=== PATIENT | male | born 1990 | race Hispanic/Latino ===

== ENCOUNTER 2024-03-19 14:48 | Emergency (ER) | payer BC ==
[2024-03-19] MEDS ORDERED: METHYLPREDNISOLONE 125 MG INJ ONE (15:36)
[2024-03-19] MEDS ORDERED: NA CHLORIDE 0.9% 1,000 ML ONE (15:36)
[2024-03-19] MEDS ORDERED: ALBUTEROL 2.5 MG/3 ML NEB SOL ONE (15:36)
[2024-03-19] MEDS ORDERED: IPRATROPIUM BROM 0.5MG/2.5ML ONE (15:36)
[2024-03-19 16:15] LABS: Absolute Basophils 0.1 K/uL (0-0.5); Absolute Eosinophils 0.4 K/uL (0-0.5); Absolute Lymphocytes (CBC) 2.1 K/uL (0.7-4.9); Absolute Monocytes 1.4 K/uL (0.1-1.3); Absolute Neutrophil 13.1 K/uL (1.8-8.0); Basophils % 0.5 % (0-1.3); Eosinophils % 2.4 % (0-4.4); Hemoglobin 18.8 g/dL (13.6-17.9); Lymphocytes % 12.4 % (15.3-44.8); MCHC 34.2 g/dL (32.0-36.0); MCV 84.6 fL (80-100); MPV 9.1 fL (7.6-11.3); Neutrophils % 76.7 % (41.7-73.7); Nucleated RBC Absolute Count 0.1 (0-0); Nucleated Red Blood Cells % 0.4 % (0-0); Platelets 466 thou/uL (152-406); RBC Red Blood Cell Count 6.51 M/uL (4.33-5.43); Red Cell Distribution Width 13.3 % (12.1-15.2)
[2024-03-19 16:28] LABS: Albumin 2.5 g/dL (3.4-5.0); Albumin/Globulin Ratio 0.9 (1.1-1.8); Anion Gap 11.6 mEq/L (5.0-15.0); Bilirubin Direct 0.2 mg/dL (0-0.2); Bilirubin Indirect, Calculated 0.2 mg/dL (0.2-0.8); Bilirubin Total 0.4 mg/dL (0.2-1.0); Globulin 2.7 g/dL (2.3-3.5); Magnesium 2.1 mg/dL (1.6-2.4); Potassium 3.6 mEq/L (3.5-5.1); Protein, Total 5.2 g/dL (6.4-8.2); Troponin High Sensitivity 3.6 pg/mL (<58.9)
--- NOTE | 2024-03-19 16:40 | RAD REPORT ---
EXAM DESCRIPTION: [place] Single View03/19/2024 4:18 pm CLINICAL HISTORY: COUGH COMPARISON: No comparisons TECHNIQUE: Portable AP view of the chest. FINDINGS: The lungs are clear. No pneumothorax or effusion. The cardiomediastinal contours are unre markable. IMPRESSION: No acute cardiopulmonary process.
--- NOTE | 2024-03-19 17:06 | ER ---
Nurse's Notes [facility] Name: Carlos Martinez Age: 34 yrs Sex: Male : 1990 Arrival Date: 03/19/2024 Time: 14:48 Bed 10 Private MD: Diagnosis: Acute bronchitis, unspecified Presentation: 03/19 15:13 Chief complaint: Patient states: chest congestion X 2 weeks, + cough, was seen at urgent care on Saturday and put on abx and albuterol, has been having vomiting and diarrhea for past few days but that has improved , the chest congestion has not improved. Coronavirus screen: Client presents with at least one sign or symptom that may indicate coronavirus-19. Ebola Screen: Patient negative for fever greater than or equal to 101.5 degrees Fahrenheit, and additional compatible Ebola Virus Disease symptoms Patient denies exposure to infectious person. Patient denies travel to an Ebola-affected area in the 21 days before illness onset. No symptoms or risks identified at this time. Initial Sepsis Screen: Does the patient meet any 2 criteria? No. Patient's initial sepsis screen is negative. Does the patient have a suspected source of infection? No. Patient's initial sepsis screen is negative. Risk Assessment: Do you want to hurt yourself or someone else? Patient reports no desire to harm self or others. Onset of symptoms was March 04, 2024. 15:13 Method Of Arrival: Ambulatory 15:13 Acuity: INOCENCIO 3 Triage Assessment: 15:50 Respiratory: Reports shortness of breath cough that is pain with cough Onset: The nj1 symptoms/episode began/occurred 2 weeks. Historical: - Allergies: 15:15 No Known Allergies; iw - Home Meds: 15:15 None [Active]; iw - PMHx: 15:15 None; iw - PSHx: 15:15 None; iw - Immunization history:: Adult Immunizations not up to date. - Infectious Disease History:: Denies. - Social history:: Smoking status: . Screenin:06 [facility] ED Fall Risk Assessment (Adult) History of falling in the last 3 months, nj1 including since admission No falls in past 3 months (0 pts) Confusion or Disorientation No (0 pts) Intoxicated or Sedated No (0 pts) Impaired Gait No (0 pts) Mobility Assist Device Used No (0 pt) Altered Elimination No (0 pt) Score/Fall Risk Level 0 - 2 = Low Risk Oriented to surroundings, Maintained a safe environment, Hourly rounding (assess needs \T\ fall precautionary measures) done. Abuse screen: Denies threats or abuse. Denies injuries from another. Nutritional screening: No deficits noted. Tuberculosis screening: No symptoms or risk factors identified. Assessment: 15:50 General: Appears in no apparent distress. comfortable, Behavior is calm, cooperative, nj1 appropriate for age. 15:50 Pain: Complains of pain in chest Pain currently is 3 out of 10 on a pain scale. Neuro: nj1 Level of Consciousness is awake, alert, obeys commands, Oriented to person, place, time, situation. Cardiovascular: Reports chest pain, shortness of breath, Patient's skin is warm and dry. Respiratory: Airway is patent Respiratory effort is even, unlabored. 16:39 Reassessment: Patient appears in no apparent distress at this time. Patient and/or nj1 family updated on plan of care and expected duration. Pain level reassessed. Patient is alert, oriented x 3, equal unlabored respirations, skin warm/dry/pink. Vital Signs: 15:13 BP 148 / 92; Pulse 99; Resp 19; Temp 97.4; Pulse Ox 99% on R/A; Weight 138.35 kg; iw Height 6 ft. 3 in. ; Pain 3/10; 15:50 BP 140 / 85; Pulse 92; Resp 18; Pulse Ox 98% on R/A; Pain 3/10; nj1 15:13 Body Mass Index 38.12 (138.35 kg, 190.5 cm) iw 15:13 Pain Scale: Adult iw 15:50 Pain Scale: Adult nj1 ED Course: 14:51 Patient arrived in ED. rg4 14:57 Alvaro Espitia MD is Attending Physician. rt 15:15 Triage completed. iw 15:15 Arm band placed on. iw 15:23 Marli Tian, ELIECER is Primary Nurse. nj1 15:58 Inserted saline lock: 20 gauge in left antecubital area, using aseptic technique. Blood nj1 collected. Ultrasound guided. Catheter tip well visualized within vasculature during placement. 16:07 Patient has correct armband on for positive identification. Bed in low position. Call nj1 light in reach. Provided Education on: call light, fall precautions. 16:11 EKG done, by ED staff, reviewed by Alvaro Espitia MD. bc6 16:19 XRAY Chest (1 view) In Process Unspecified. EDMS Administered Medications: 15:59 Drug: MethylPrednisoLONE IVP 125 mg IVP once Route: IVP; Site: left antecubital; nj1 15:59 Drug: NS 0.9% IV 1000 ml IV at 1 bolus Per protocol; 1000 mL bolus Route: IV; Rate: 1 nj1 bolus; Site: left antecubital; 16:01 Drug: DuoNeb Nebulize (3:1) (2.5 mg - 0.5 mg) 3 ml Nebulizer once Route: Nebulizer; nj1 Outcome: 17:05 Discharge ordered by . rt 17:27 Patient left the ED. nj1 Signatures: Dispatcher [employer] EDMS Shania Lauren, RN RN Tangela Gavin rg4 Alvaro Espitia MD MD rt Jenny Cabrera bc6 Marli Tian RN RN nj1
--- NOTE | 2024-03-19 17:06 | EDPHYS ---
Physician Documentation [facility] Name: Carlos Martinez Age: 34 yrs Sex: Male : 1990 Arrival Date: 03/19/2024 Time: 14:48 Bed 10 Private MD: ED Physician Alvaro Espitia Historical: - Allergies: 03/19 15:15 No Known Allergies; iw - Home Meds: 15:15 None [Active]; iw - PMHx: 15:15 None; iw - PSHx: 15:15 None; iw - Immunization history:: Adult Immunizations not up to date. - Infectious Disease History:: Denies. - Social history:: Smoking status: . Vital Signs: 15:13 BP 148 / 92; Pulse 99; Resp 19; Temp 97.4; Pulse Ox 99% on R/A; Weight 138.35 kg; iw Height 6 ft. 3 in. ; Pain 3/10; 15:50 BP 140 / 85; Pulse 92; Resp 18; Pulse Ox 98% on R/A; Pain 3/10; nj1 15:13 Body Mass Index 38.12 (138.35 kg, 190.5 cm) iw 15:13 Pain Scale: Adult iw 15:50 Pain Scale: Adult nj1 MDM: 15:20 Patient medically screened. rt 03/19 15:29 Order name: Basic Metabolic Panel; Complete Time: 16:44 rt 03/19 15:29 Order name: CBC with Diff; Complete Time: 16:44 rt 03/19 15:29 Order name: LFT's; Complete Time: 16:44 rt 03/19 15:29 Order name: Magnesium; Complete Time: 16:44 rt 03/19 15:29 Order name: NT PRO-BNP; Complete Time: 16:44 rt 03/19 15:29 Order name: Troponin HS; Complete Time: 16:44 rt 03/19 15:29 Order name: XRAY Chest (1 view); Complete Time: 16:44 rt 03/19 15:29 Order name: EKG; Complete Time: 15:30 rt 03/19 15:29 Order name: Cardiac monitoring; Complete Time: 16:13 rt 03/19 15:29 Order name: EKG - Nurse/Tech; Complete Time: 16:11 rt 03/19 15:29 Order name: IV Saline Lock; Complete Time: 16:04 rt 03/19 15:29 Order name: Labs collected and sent; Complete Time: 16:04 rt 03/19 15:29 Order name: O2 Per Protocol; Complete Time: 16:04 rt 03/19 15:29 Order name: O2 Sat Monitoring; Complete Time: 16:04 rt Administered Medications: 15:59 Drug: MethylPrednisoLONE IVP 125 mg IVP once Route: IVP; Site: left antecubital; nj1 15:59 Drug: NS 0.9% IV 1000 ml IV at 1 bolus Per protocol; 1000 mL bolus Route: IV; Rate: 1 nj1 bolus; Site: left antecubital; 16:01 Drug: DuoNeb Nebulize (3:1) (2.5 mg - 0.5 mg) 3 ml Nebulizer once Route: Nebulizer; nj1 Disposition Summary: 03/19/24 17:05 Discharge Ordered Notes: Location: Home rt Problem: an ongoing problem rt Symptoms: have improved rt Condition: Stable rt Diagnosis - Acute bronchitis, unspecified rt Followup: rt - With: Private Physician - When: 5 - 6 days - Reason: Discharge Instructions: - Discharge Summary Sheet rt Forms: - Medication Reconciliation Form rt - Antibiotic Education rt - Prescription Opioid Use rt - Patient Portal Instructions rt - Leadership Thank You Letter rt Prescriptions: - albuterol sulfate 90 mcg/actuation Inhalation HFA Aerosol Inhaler - inhale 3 puff INHALATION route every 3 to 4 hours; 1 Each; Refills: 0, Product rt Selection Permitted - Prednisone 20 mg Oral Tablet - take 2 tablets ORAL route once daily for 5 days; 10 tablet; Refills: 0, Product rt Selection Permitted Signatures: Dispatcher [employer] EDShania Ku RN RN iw Alvaro Espitia MD MD rt Marli Tian RN RN nj1 Corrections: (The following items were deleted from the chart) 15:30 15:30 BASIC METABOLIC PANEL+C.LAB.BRZ ordered. EDMS EDMS 15:30 15:30 CBC+H.LAB.BRZ ordered. EDMS EDMS 15:30 15:30 HEPATIC FUNCTION+C.LAB.BRZ ordered. EDMS EDMS 15:30 15:30 MAGNESIUM+C.LAB.BRZ ordered. EDMS EDMS 15:30 15:30 PROBNP+C.LAB.BRZ ordered. EDMS EDMS 15:30 15:30 Troponin High Sensitivity+C.LAB.BRZ ordered. EDMS EDMS
[2024-03-19 18:34] VITALS: TEMP 97.4
[2024-03-19 19:00] VITALS: BP 140/85; O2SAT 98
--- NOTE | 2024-03-23 13:09 | EKG ---
Test Date: 2024-03-19 Test Time: 16:08:03 Photographer Aerial: LACHELLE MEASUREMENT RESULTS: Intervals: Rate: 98 OK: 140 QRSD: 86 QT: 336 QTc: 428 Hoffman: P: 49 OK: 140 QRS: 18 T: 72 INTERPRETIVE STATEMENTS: Normal sinus rhythm Normal ECG No previous ECG available for comparison Electronically Signed On 03-23-24 12:59:03 CDT by Torsten Leonard
== END 2024-03-19 17:27 | disposition home or self-care (01) ==
LOC: ER 14:48
DX: J20.9 Acute bronchitis, unspecified (principal)
CPT/HCPCS: 93005; 85025; 80048; 36415; 83735; 80076; 84484; 83880; 71045; J7613; J7644; J2919; J7030

== ENCOUNTER 2024-03-28 18:16 | Emergency (ER) | payer BC ==
--- NOTE | 2024-03-28 19:10 | RAD REPORT ---
EXAM DESCRIPTION: RAD - Chest Single View - 03/28/2024 6:54 pm CLINICAL HISTORY: Cough;SOB COMPARISON: Chest Single View dated 03/19/2024 FINDINGS: Lines: None. Lungs: No evidence of edema or pneumonia. Pleural: No significant pleural effusions or pneumothorax. Cardiac: The heart size is within normal limits. Mediastinum: Within normal limits. Bones: No acute fractures. Other: None IMPRESSION: No acute cardiopulmonary disease.
[2024-03-28] MEDS ORDERED: METHYLPREDNISOLONE 125 MG INJ ONE (19:11)
[2024-03-28] MEDS ORDERED: LEVALBUTEROL 1.25 MG/3 ML NEB ONE ×2 (19:11→21:54)
[2024-03-28] MEDS ORDERED: IPRATROPIUM BROM 0.5MG/2.5ML ONE (19:11)
[2024-03-28 19:20] LABS: Absolute Eosinophils 0.9 K/uL (0-0.5); Absolute Lymphocytes (CBC) 0.8 K/uL (0.7-4.9); Absolute Monocytes 0.9 K/uL (0.1-1.3); Absolute Neutrophil 14.1 K/uL (1.8-8.0); Basophils % 0.2 % (0-1.3); Eosinophils % 5.4 % (0-4.4); Hematocrit 40.5 % (39.6-49.0); Hemoglobin 13.5 g/dL (13.6-17.9); MCH 28.9 pg (27.0-35.0); MCHC 33.3 g/dL (32.0-36.0); MCV 86.9 fL (80-100); MPV 9.2 fL (7.6-11.3); Monocytes % 5.4 % (3.3-12.3); Nucleated RBC Absolute Count 0.2 (0-0); Nucleated Red Blood Cells % 0.9 % (0-0); Platelets 150 thou/uL (152-406); RBC Red Blood Cell Count 4.66 M/uL (4.33-5.43); Red Cell Distribution Width 14.3 % (12.1-15.2)
[2024-03-28 19:32] LABS: SARS-CoV-2 Antigen CONTROL BLUE LINE VIS/BG OK; SARS-CoV-2 Antigen Rapid Res Negative (Negative)
[2024-03-28 19:34] LABS: PT Prothrombin Time 10.9 SECONDS (9.5-12.5); PTT, Activated Partial Thromb 30.9 SECONDS (24.3-36.9); Protime INR 0.99
[2024-03-28] MEDS ORDERED: NA CHLORIDE 0.9% 1,000 ML ONE ×2 (19:38→22:58)
[2024-03-28] MEDS ORDERED: CEFTRIAXONE 1000 MG/VIAL ONE (20:58)
[2024-03-28] MEDS ORDERED: OSELTAMIVIR 75 MG CAP PO ONE (20:59)
[2024-03-28] MEDS ORDERED: NA CHLORIDE 0.9% 250 ML ONE ×2 (20:59→22:59)
[2024-03-28] MEDS ORDERED: AZITHROMYCIN 500 MG INJ IVPB ONE (20:59)
[2024-03-28 21:37] LABS: Albumin 3.5 g/dL (3.4-5.0); Albumin/Globulin Ratio 1.1 (1.1-1.8); Anion Gap 9.8 mEq/L (5.0-15.0); Bilirubin Total 0.4 mg/dL (0.2-1.0); Globulin 3.3 g/dL (2.3-3.5); Potassium 3.8 mEq/L (3.5-5.1); Protein, Total 6.8 g/dL (6.4-8.2); Troponin High Sensitivity 8.7 pg/mL (<58.9)
[2024-03-28 21:43] LABS: Specific Gravity 1.014 (1.005-1.030); Sqamous Epithelial None Seen /HPF (None Seen); Urine Bacteria None Seen /HPF (<20); Urine Bilirubin NEGATIVE (Negative); Urine Blood Negative (Negative); Urine Clarity Clear (Clear); Urine Color Light-Yellow (Yellow); Urine Culture Reflex Order NOT NEEDED; Urine Glucose NEGATIVE (Negative); Urine Ketones NEGATIVE (Negative); Urine Microscopic Reflex YN ORDER UMIC; Urine Nitrite NEGATIVE (Negative); Urine Protein NEGATIVE (Negative); Urine RBC <5 /HPF (None Seen); Urine Urobilinogen Normal (Normal); Urine WBC <5 /HPF (<5); Urine pH 5.5 (5.0-7.0)
--- NOTE | 2024-03-28 22:30 | RAD REPORT ---
EXAM DESCRIPTION: CT - Chest For Pe Angio - 03/28/2024 10:13 pm CLINICAL HISTORY: SOB COMPARISON: No comparisons TECHNIQUE: Dynamically enhanced axial 3 mm thick images of the chest were obtained during administra tion of <100> mL Isovue 370 IV contrast. Coronal and oblique reconstruction images were generated and reviewed. Exam utilizes a protocol for optimal evaluation of pulmonary arterial tree. Maximum intensity projections 3D imaging was utilized All CT scans are performed using dose optimization technique as appropriate and may include automated exposure control or mA/KV adjustment according to patient size. FINDINGS: Chest Wall: No suspicious thyroid nodules or pathologic lymphadenopathy. Lungs: Significant motion artifact. Pleura: No significant effusions or pneumothorax. Mediastinum/joie: Pneumomediastinum is present. This is around the distal esophagus and also within t he anterior mediastinum. Pulmonary arteries/Aorta: No central pulmonary embolus. The segmental and subsegmental pulmonary chyna koko cannot be assessed due to motion. No aortic aneurysm. Heart: No significant pericardial effusion. Normal heart size. Upper abdomen: No acute abnormality.Hepatic steatosis. Bones: No acute abnormality. IMPRESSION: No central pulmonary embolus. Significant motion artifact limits evaluation of the segme ntal and subsegmental pulmonary arteries. Moderate pneumomediastinum. The source is uncertain. Given the distribution of air around the distal esophagus, this could be the source. No mediastinal fluid/abscess identified. Conveyed to Dr. Booth by Dr. Barahona at 1577 on 03/28/24.
--- NOTE | 2024-03-28 22:56 | EDPHYS ---
Physician Documentation [facility] Name: Carlos Martinez Age: 34 yrs Sex: Male : 1990 Arrival Date: 03/28/2024 Time: 18:16 Bed 4 Private MD: ED Physician Luc Booth HPI: 03/28 18:40 This 34 yrs old Male presents to ER via Ambulatory with complaints of cp Breathing Difficulty. 18:40 The patient has shortness of breath at rest. Onset: The symptoms/episode began/occurred cp 3 day(s) ago. Duration: The symptoms are continuous, and are steadily getting worse. Associated signs and symptoms: Pertinent positives: productive cough times 3 weeks. 18:40 Severity of symptoms: in the emergency department the symptoms are worse moderately. cp Historical: - Allergies: 18:34 No Known Allergies; hb - Immunization history:: Adult Immunizations unknown. - Infectious Disease History:: Denies. - Social history:: Smoking status: unknown. ROS: 18:45 Constitutional: Negative for body aches, chills, fever, poor PO intake, cp 18:45 Cardiovascular: Negative for chest pain, edema, cp 18:45 Eyes: Negative for injury, pain, redness, and discharge, cp 18:45 ENT: Negative for drainage from ear(s), ear pain, sore throat, difficulty swallowing, difficulty handling secretions, 18:45 Respiratory: Positive for cough, shortness of breath, at rest. wheezing, 18:45 Abdomen/GI: Negative for vomiting, diarrhea, constipation, 18:45 Neuro: Negative for altered mental status, dizziness, headache, numbness, syncope, weakness, 18:45 All other systems are negative, Exam: 19:35 ECG was reviewed by the Attending Physician. cp 19:35 Constitutional: The patient appears alert, awake, well developed, well nourished, cp diaphoretic, in obvious distress, moderately distressed, uncomfortable, 19:35 Head/Face: Normocephalic, atraumatic. cp 19:35 Eyes: Periorbital structures: appear normal, Conjunctiva: normal, no exudate, no injection, Sclera: no appreciated abnormality, Lids and lashes: appear normal, bilaterally, 19:35 ENT: External ear(s): are unremarkable, Nose: is normal, Mouth: Lips: moist, Oral mucosa: pink and intact, moist, Posterior pharynx: Airway: no evidence of obstruction, patent, 19:35 Neck: ROM/movement: is normal, is supple, without pain, no range of motions limitations, no meningismus, no nuchal rigidity, 19:35 Chest/axilla: Inspection: normal, Palpation: is normal, no crepitus, no tenderness, 19:35 Cardiovascular: Rate: tachycardic, Rhythm: regular, Edema: is not appreciated, JVD: is not appreciated, 19:35 Respiratory: moderate respiratory distress is noted, Respirations: labored breathing, that is moderate, tachypnea, that is moderate, Breath sounds: decreased breath sounds, that are moderate, throughout, stridor, is not appreciated, wheezing: that is mild, is heard diffusely, 19:35 Abdomen/GI: Inspection: abdomen appears normal, Bowel sounds: active, all quadrants, Palpation: abdomen is soft and non-tender, in all quadrants, 19:35 Back: pain, is absent, ROM is normal, 19:35 Skin: cellulitis, is not appreciated, no rash present. 19:35 Neuro: Orientation: to person, place \T\ time. Mentation: is normal, Vital Signs: 18:33 BP 150 / 92; Pulse 139; Resp 36; Temp 99.2(TE); Pulse Ox 94% on R/A; Pain 0/10; hb 19:00 BP 130 / 77; Pulse 120; Resp 28; Temp 99.2; Pulse Ox 97% on 2 lpm NC; Pain 0/10; bm8 20:45 BP 151 / 89; Pulse 128; Resp 33; Pulse Ox 95% on R/A; tm6 21:34 BP 143 / 95; Pulse 123; Resp 24; Temp 98.7; Pulse Ox 96% on 2 lpm NC; Pain 0/10; bm8 22:35 BP 159 / 86; Pulse 123; Resp 24; Temp 98.7; Pulse Ox 97% on 2 lpm NC; Pain 0/10; bm8 22:53 Weight 138 kg; Height 6 ft. 3 in. ; rv1 23:38 BP 168 / 81; Pulse 118; Resp 17; Temp 98.7; Pulse Ox 94% on 2 lpm NC; Pain 0/10; bm8 05/ 00:58 BP 142 / 83; Pulse 112; Resp 22; Temp 98.7; Pulse Ox 97% on 2 lpm NC; Pain 0/10; bm8 03/28 22:53 Body Mass Index 38.03 (138.00 kg, 190.5 cm) rv1 03/28 18:33 Pain Scale: Adult hb 19:00 Pain Scale: Adult bm8 21:34 Pain Scale: Adult bm8 22:35 Pain Scale: Adult bm8 23:38 Pain Scale: Adult bm8 03/29 00:58 Pain Scale: Adult bm8 Irineo Coma Score: 03/28 19:00 Eye Response: spontaneous(4). Motor Response: obeys commands(6). Verbal Response: bm8 oriented(5). Total: 15. 21:34 Eye Response: spontaneous(4). Motor Response: obeys commands(6). Verbal Response: bm8 oriented(5). Total: 15. 23:38 Eye Response: spontaneous(4). Motor Response: obeys commands(6). Verbal Response: bm8 oriented(5). Total: 15. 03/29 00:58 Eye Response: spontaneous(4). Motor Response: obeys commands(6). Verbal Response: bm8 oriented(5). Total: 15. MDM: 03/28 18:24 Patient medically screened. 22:50 Data reviewed: vital signs, nurses notes, lab test result(s), EKG, radiologic studies, CT scan, plain films, I have discussed the patient's presentation/case with the attending Emergency Department Physician;. 22:50 I considered the following discharge prescriptions or medication management in the emergency department Medications were administered in the Emergency Department. See MAR. Counseling: I had a detailed discussion with the patient and/or guardian regarding the historical points, exam findings, and any diagnostic results supporting the discharge/admit diagnosis, lab results, radiology results, the need to transfer to another facility, for higher level of care, [facility] does not immediately have the required specialist. 23:45 Management of patient was discussed with the following: Hospitalist: DR Villeda will accept patient as transfer to [facility]. 03/28 18:34 Order name: Blood Culture Adult (2) cp 03/28 18:34 Order name: CBC with Diff; Complete Time: 20:54 cp 05/04 20:54 Interpretation: Normal except: WBC 16.80; HGB 13.5; PLT 150; PATTY% 84.0; LYM% 5.0; cp EOSINOPHIL % 5.4; NEUT A 14.1; EOSA 0.9. 05/04 18:34 Order name: CMP; Complete Time: 21:48 cp 05/04 23:03 Interpretation: Normal except: CL 109; GLUC 108; ALT 150. cp 05/04 18:34 Order name: Lactate w/ 2H reflex if indic.; Complete Time: 21:48 cp 05/04 23:03 Interpretation: Reviewed. cp 05/04 18:34 Order name: Protime (+inr); Complete Time: 20:34 cp 05/04 18:34 Order name: Ptt, Activated; Complete Time: 20:34 cp 05/04 18:34 Order name: Urinalysis w/ reflexes; Complete Time: 21:48 cp 05/04 18:34 Order name: Troponin HS; Complete Time: 21:48 cp 05/04 19:01 Order name: SARS RAPID; Complete Time: 20:34 cp 05/04 19:01 Order name: Influenza Screen (a \T\ B); Complete Time: 20:34 cp 05/04 20:34 Interpretation: Reviewed. cp 04 19:39 Order name: Glucose, Ancillary Testing; Complete Time: 20:34 EDMS 05/04 18:34 Order name: Chest Single View XRAY; Complete Time: 19:12 cp 05/04 21:49 Order name: CT Chest For PE Angio; Complete Time: 22:33 cp 05/04 18:34 Order name: Accucheck; Complete Time: 19:32 cp 05/04 18:34 Order name: Cardiac monitoring; Complete Time: 19:32 cp 05/04 18:34 Order name: EKG - Nurse/Tech; Complete Time: 19:32 cp 05/04 18:34 Order name: IV Saline Lock - Large Bore; Complete Time: 19:32 cp 05/04 18:34 Order name: Labs collected and sent; Complete Time: 19:32 cp 05/04 18:34 Order name: O2 Per Protocol; Complete Time: 19:32 cp 05/04 18:34 Order name: O2 Sat Monitoring; Complete Time: 19:33 cp 05/04 18:34 Order name: Vital Signs; Complete Time: 19:33 cp 05/04 19:35 Order name: Misc. Order: RECOLLECT LAVENDER AND BLUE TOP; Complete Time: 19:36 rv1 EC:35 Rate is 121 beats/min. Rhythm is regular. ID interval is normal. QRS interval is cp normal. QT interval is normal. T waves are Inverted in lead aVR. Interpreted by me. Reviewed by me. Administered Medications: 19:32 Drug: Levalbuterol Inhalation 1.25 mg Inhalation once Route: Inhalation; bm8 21:36 Follow up: Response: No adverse reaction bm8 19:32 Drug: Ipratropium Inhalation Aerosol 0.5 mg Inhalation once Route: Inhalation; bm8 21:36 Follow up: Response: No adverse reaction bm8 19:32 Drug: MethylPrednisoLONE IVP 125 mg IVP once Route: IVP; Site: left antecubital; bm8 21:35 Follow up: Response: No adverse reaction bm8 20:02 Drug: NS 0.9% IV 1000 ml IV at 999 ml/hr Per protocol; 1000 mL bolus Route: IV; Rate: bm8 999 ml/hr; Site: left antecubital; 21:35 Follow up: Response: No adverse reaction; IV Status: Completed infusion; IV Intake: bm8 1000ml 21:11 Drug: Zithromax IVPB 500 mg IVPB once over 1 hrs; mix in 250 mL NS Route: IVPB; Infused tm6 Over: 1 hrs; Site: left antecubital; 22:35 Follow up: Response: No adverse reaction; IV Status: Completed infusion; IV Intake: bm8 250ml 21:11 Drug: Rocephin IV 1 grams IV at calculated rate once; Given slow IV push per pharmacy tm6 instructions Route: IV; Rate: calculated rate; Site: left antecubital; 22:35 Follow up: Response: No adverse reaction; IV Status: Completed infusion; IV Intake: bm8 100ml 21:11 Drug: Oseltamivir PO 75 mg PO once Route: PO; tm6 22:34 Follow up: Response: No adverse reaction bm8 21:53 Drug: Levalbuterol Inhalation 1.25 mg Inhalation once Route: Inhalation; bm8 22:34 Follow up: Response: No adverse reaction bm8 23:39 Drug: Piperacillin-Tazobactam IVPB 4.5 grams IVPB once over 60 mins; (mix in 100 mL NS) 8 Route: IVPB; Infused Over: 60 mins; Site: right forearm; 03/29 00:14 Follow up: Response: No adverse reaction; IV Status: Completed infusion; IV Intake: bm8 100ml 03/28 23:39 Drug: NS 0.9% IV 1000 ml IV at 1 bolus Per protocol; 1000 mL bolus Route: IV; Rate: 1 bm8 bolus; Site: left antecubital; 03/29 01:00 Follow up: Response: No adverse reaction; IV Status: Infusion continued upon transfer [facility] 03/28 23:39 Drug: Pantoprazole IVP 40 mg IVP once Route: IVP; Site: left antecubital; [facility] 03/29 01:00 Follow up: Response: No adverse reaction [facility] 03/28 23:39 Drug: Pantoprazole IV 8 mg/hr IV at 25 ml/hr continuous; (Standard dilution is 80 mg in bm8 250 mL NS) Route: IV; Rate: 25 ml/hr; Site: left antecubital; 03/29 00:15 Follow up: Response: No adverse reaction; IV Status: Infusion continued upon transfer [facility] 03/28 23:39 Drug: Pantoprazole IVP 40 mg IVP once Route: IVP; Site: left antecubital; [facility] 03/29 00:14 Follow up: Response: No adverse reaction [facility] Disposition: 00:09 I was immediately available on-site in the Emergency Department for consultation in the ms3 care of the patient. Disposition Summary: 03/28/24 22:56 Transfer Ordered Notes: Transfer Location: [facility] cp Reason: Higher level of care cp Condition: Stable cp Problem: new cp Symptoms: have improved cp Accepting Physician: doctor(03/29/24 01:01) bm8 Diagnosis - Pneumomediastinum cp - Influenza due to other identified influenza virus with other respiratory cp manifestations Forms: - Medication Reconciliation Form cp - SBAR form cp Signatures: Dispatcher [employer] EDMS Filiberto Sepulveda PA PA cp Angeles Castano, RN RN Luc Drake DO DO ms3 Kalani Villa T[place]ney RN RN tm6 Daryn Peralta RN RN bm8 Corrections: (The following items were deleted from the chart) 03/28 18:35 18:35 BLOOD CULTURE*+BA.LAB.BRZ ordered. EDMS EDMS 18:35 18:35 CBC+H.LAB.BRZ ordered. EDMS EDMS 18:35 18:35 COMPREHENSIVE METABOLIC PANEL+C.LAB.BRZ ordered. EDMS EDMS 18:35 18:35 LACTATE+C.LAB.BRZ ordered. EDMS EDMS 18:35 18:35 PROTIME (+INR)+COAG.LAB.BRZ ordered. EDMS EDMS 18:35 18:35 PTT, ACTIVATED+COAG.LAB.BRZ ordered. EDMS EDMS 18:35 18:35 Urinalysis+U.LAB.BRZ ordered. EDMS EDMS 18:35 18:35 Troponin High Sensitivity+C.LAB.BRZ ordered. EDMS EDMS 18:35 18:35 Chest Single View+RAD.RAD.BRZ ordered. EDMS EDMS 03/29 01:01 03/28 22:56 doctor cp bm8
--- NOTE | 2024-03-28 22:56 | ER ---
Nurse's Notes [facility] Name: Carlos Martinez Age: 34 yrs Sex: Male : 1990 Arrival Date: 03/28/2024 Time: 18:16 Bed 4 Private MD: Diagnosis: Pneumomediastinum;Influenza due to other identified influenza virus with other respiratory manifestations Presentation: 03/28 18:33 Chief complaint: Cough and congestion x 3 weeks, worsening SOB x 3 days. Coronavirus hb screen: At this time, the client does not indicate any symptoms associated with coronavirus-19. Ebola Screen: No symptoms or risks identified at this time. Initial Sepsis Screen: Does the patient meet any 2 criteria? RR > 20 per min. HR > 90 bpm. Yes Does the patient have a suspected source of infection? No. Patient's initial sepsis screen is negative. Risk Assessment: Do you want to hurt yourself or someone else? Patient reports no desire to harm self or others. Onset of symptoms was March 25, 2024. 18:33 Method Of Arrival: Ambulatory hb 18:33 Acuity: INOCENCIO 2 hb Triage Assessment: 18:34 General: Appears distressed, Behavior is cooperative, agitated. Pain: Denies pain. hb Neuro: Level of Consciousness is awake, alert, obeys commands, Oriented to person, place, time, situation. Cardiovascular: Rhythm is sinus tachycardia. Respiratory: Reports shortness of breath at rest cough that is Respiratory effort is labored, gasping, Respiratory pattern is tachypnea Onset: The symptoms/episode began/occurred 3 days, the patient has severe shortness of breath. Historical: - Allergies: 18:34 No Known Allergies; hb - Immunization history:: Adult Immunizations unknown. - Infectious Disease History:: Denies. - Social history:: Smoking status: unknown. Screenin:41 [facility] ED Fall Risk Assessment (Adult) History of falling in the last 3 months, bp including since admission No falls in past 3 months (0 pts). Abuse screen: Denies threats or abuse. Denies injuries from another. Nutritional screening: No deficits noted. Tuberculosis screening: No symptoms or risk factors identified. Assessment: 18:40 General: Appears distressed, obese, Behavior is cooperative, appropriate for age, bp agitated, anxious. Pain: Denies pain. Cardiovascular: Rhythm is sinus tachycardia. Respiratory: Airway is patent Respiratory effort is even, Respiratory pattern is hyperventilation Breath sounds are clear bilaterally. 19:00 General: Appears distressed, uncomfortable, obese, Behavior is calm, cooperative, bm8 appropriate for age. Pain: Denies pain. Neuro: No deficits noted. Level of Consciousness is awake, alert, obeys commands, Oriented to person, place, time, situation, Appropriate for age. Cardiovascular: Heart tones S1 S2 present Capillary refill < 3 seconds Patient's skin is warm and dry. Rhythm is sinus tachycardia. Respiratory: Airway is patent Respiratory effort is even, labored, Respiratory pattern is hyperventilation Breath sounds with crackles bilaterally. GI: No deficits noted. No signs and/or symptoms were reported involving the gastrointestinal system. : No deficits noted. No signs and/or symptoms were reported regarding the genitourinary system. EENT: No deficits noted. No signs and/or symptoms were reported regarding the EENT system. Derm: No deficits noted. No signs and/or symptoms reported regarding the dermatologic system. Musculoskeletal: No deficits noted. No signs and/or symptoms reported regarding the musculoskeletal system. 20:45 Reassessment: Patient is alert, oriented x 3, equal unlabored respirations, skin tm6 warm/dry/pink. 21:34 Reassessment: Patient appears in no apparent distress at this time. Patient and/or bm8 family updated on plan of care and expected duration. Pain level reassessed. Patient is alert, oriented x 3, equal unlabored respirations, skin warm/dry/pink. Pain: Denies pain. Respiratory: Breath sounds with crackles bilaterally. Breath sounds are diminished bilaterally. the patient has moderate shortness of breath. 22:35 Reassessment: No changes from previously documented assessment. Patient and/or family bm8 updated on plan of care and expected duration. Pain level reassessed. Patient is alert, oriented x 3, equal unlabored respirations, skin warm/dry/pink. 23:35 Reassessment: Patient appears in no apparent distress at this time. No changes from bm8 previously documented assessment. Patient and/or family updated on plan of care and expected duration. Pain level reassessed. Patient is alert, oriented x 3, equal unlabored respirations, skin warm/dry/pink. Patient states symptoms have improved. 03/29 00:18 Reassessment: attempted to call report and was told "the nurse who will be getting this 8 pt is currently in another room call back in 20 mins." by Melina. Nurse to receive report is KHALIDA Villanueva. 00:58 Reassessment: report to KHALIDA Villanueva, pt being loaded onto stretcher and departing at [facility] this time. Vital Signs: 03/28 18:33 BP 150 / 92; Pulse 139; Resp 36; Temp 99.2(TE); Pulse Ox 94% on R/A; Pain 0/10; hb 19:00 BP 130 / 77; Pulse 120; Resp 28; Temp 99.2; Pulse Ox 97% on 2 lpm NC; Pain 0/10; bm8 20:45 BP 151 / 89; Pulse 128; Resp 33; Pulse Ox 95% on R/A; tm6 21:34 BP 143 / 95; Pulse 123; Resp 24; Temp 98.7; Pulse Ox 96% on 2 lpm NC; Pain 0/10; bm8 22:35 BP 159 / 86; Pulse 123; Resp 24; Temp 98.7; Pulse Ox 97% on 2 lpm NC; Pain 0/10; bm8 22:53 Weight 138 kg; Height 6 ft. 3 in. ; rv1 23:38 BP 168 / 81; Pulse 118; Resp 17; Temp 98.7; Pulse Ox 94% on 2 lpm NC; Pain 0/10; bm8 03/29 00:58 BP 142 / 83; Pulse 112; Resp 22; Temp 98.7; Pulse Ox 97% on 2 lpm NC; Pain 0/10; bm8 03/28 22:53 Body Mass Index 38.03 (138.00 kg, 190.5 cm) rv1 03/28 18:33 Pain Scale: Adult hb 19:00 Pain Scale: Adult bm8 21:34 Pain Scale: Adult bm8 22:35 Pain Scale: Adult bm8 23:38 Pain Scale: Adult bm8 03/29 00:58 Pain Scale: Adult bm8 Jackson Coma Score: 03/28 19:00 Eye Response: spontaneous(4). Motor Response: obeys commands(6). Verbal Response: bm8 oriented(5). Total: 15. 21:34 Eye Response: spontaneous(4). Motor Response: obeys commands(6). Verbal Response: bm8 oriented(5). Total: 15. 23:38 Eye Response: spontaneous(4). Motor Response: obeys commands(6). Verbal Response: bm8 oriented(5). Total: 15. 03/29 00:58 Eye Response: spontaneous(4). Motor Response: obeys commands(6). Verbal Response: bm8 oriented(5). Total: 15. ED Course: 03/28 18:18 Patient arrived in ED. rg4 18:24 Filiberto Sepulveda PA is PHCP. cp 18:24 Killian Blount MD is Attending Physician. cp 18:34 Triage completed. hb 18:35 Arm band placed on. hb 18:40 Domo Harley, KHALIDA is Primary Nurse. bp 18:41 Patient has correct armband on for positive identification. bp 18:56 Chest Single View XRAY In Process Unspecified. EDMS 19:00 Report received from khalida Oliveros. Client placed on continuous cardiac and pulse oximetry bm8 monitoring. NIBP monitoring applied. radiation monitor on. Pulse ox on. NIBP on. Door closed. Noise minimized. Verbal reassurance given. Head of bed elevated. 19:00 Inserted saline lock: 20 gauge in left antecubital area, using aseptic technique. Blood bp collected. 19:59 Luc Booth DO is Attending Physician. cp 21:34 No provider procedures requiring assistance completed. Response to oxygen therapy: bm8 symptoms improved. 22:14 CT Chest For PE Angio In Process Unspecified. EDMS 23:15 Missed attempt(s): 20 gauge Bleeding controlled, band aid applied, catheter tip intact. bm8 23:38 Accessed peripheral vein via ultrasound, utilizing dynamic ultrasound technique using bm8 18G Nexia IV Catheter ,sterile technique, Clean \\T\\ dry. Dressing intact. Good blood return. Flushes easily. 03/29 00:58 Provided Education on: need for transfer. bm8 00:58 Patient transferred, IV remains in place. bm8 Administered Medications: 03/28 19:32 Drug: Levalbuterol Inhalation 1.25 mg Inhalation once Route: Inhalation; bm8 21:36 Follow up: Response: No adverse reaction bm8 19:32 Drug: Ipratropium Inhalation Aerosol 0.5 mg Inhalation once Route: Inhalation; bm8 21:36 Follow up: Response: No adverse reaction bm8 19:32 Drug: MethylPrednisoLONE IVP 125 mg IVP once Route: IVP; Site: left antecubital; bm8 21:35 Follow up: Response: No adverse reaction bm8 20:02 Drug: NS 0.9% IV 1000 ml IV at 999 ml/hr Per protocol; 1000 mL bolus Route: IV; Rate: bm8 999 ml/hr; Site: left antecubital; 21:35 Follow up: Response: No adverse reaction; IV Status: Completed infusion; IV Intake: bm8 1000ml 21:11 Drug: Zithromax IVPB 500 mg IVPB once over 1 hrs; mix in 250 mL NS Route: IVPB; Infused tm6 Over: 1 hrs; Site: left antecubital; 22:35 Follow up: Response: No adverse reaction; IV Status: Completed infusion; IV Intake: bm8 250ml 21:11 Drug: Rocephin IV 1 grams IV at calculated rate once; Given slow IV push per pharmacy tm6 instructions Route: IV; Rate: calculated rate; Site: left antecubital; 22:35 Follow up: Response: No adverse reaction; IV Status: Completed infusion; IV Intake: bm8 100ml 21:11 Drug: Oseltamivir PO 75 mg PO once Route: PO; tm6 22:34 Follow up: Response: No adverse reaction bm8 21:53 Drug: Levalbuterol Inhalation 1.25 mg Inhalation once Route: Inhalation; bm8 22:34 Follow up: Response: No adverse reaction bm8 23:39 Drug: Piperacillin-Tazobactam IVPB 4.5 grams IVPB once over 60 mins; (mix in 100 mL NS) bm8 Route: IVPB; Infused Over: 60 mins; Site: right forearm; 03/29 00:14 Follow up: Response: No adverse reaction; IV Status: Completed infusion; IV Intake: bm8 100ml 03/28 23:39 Drug: NS 0.9% IV 1000 ml IV at 1 bolus Per protocol; 1000 mL bolus Route: IV; Rate: 1 bm8 bolus; Site: left antecubital; 03/29 01:00 Follow up: Response: No adverse reaction; IV Status: Infusion continued upon transfer bm8 03/28 23:39 Drug: Pantoprazole IVP 40 mg IVP once Route: IVP; Site: left antecubital; bm8 03/29 01:00 Follow up: Response: No adverse reaction bm8 03/28 23:39 Drug: Pantoprazole IV 8 mg/hr IV at 25 ml/hr continuous; (Standard dilution is 80 mg in bm8 250 mL NS) Route: IV; Rate: 25 ml/hr; Site: left antecubital; 03/29 00:15 Follow up: Response: No adverse reaction; IV Status: Infusion continued upon transfer bm8 03/28 23:39 Drug: Pantoprazole IVP 40 mg IVP once Route: IVP; Site: left antecubital; bm8 03/29 00:14 Follow up: Response: No adverse reaction bm8 Medication: 03/28 19:00 VIS not applicable for this client. bm8 Intake: 21:35 IV: 1000ml; Total: 1000ml. bm8 22:35 IV: 100ml; Total: 1100ml. bm8 22:35 IV: 250ml; Total: 1350ml. bm8 03/29 00:14 IV: 100ml; Total: 1450ml. bm8 Outcome: 03/28 22:56 ER care complete, transfer ordered by . ramiro 03/29 00:58 Transferred by ground EMS to [facility], Transfer form completed. bm8 X-rays sent w/ patient. Condition: stable Instructed on the need for transfer, 01:01 Patient left the ED. bm8 Signatures: Dispatcher [employer] EDMS Filiberto Sepulveda PA PA cp Baxter, Heather, RN RN Tangela Espinal rg4 Domo Harley RN RN bp Kalani Villa rv1 Yulisa Kay RN RN tm6 Daryn Peralta RN RN bm8 Corrections: (The following items were deleted from the chart) 03/28 19:36 19:00 BP 130 / 77; Pulse 120bpm; Resp 28bpm; Pulse Ox 97% 2 lpm Nasal Cannula; Temp bm8 99.2F; Pain 5/10, Adult; bm8
[2024-03-28] MEDS ORDERED: PIPERACIL/TAZO 4.5 GM VIAL IV ONE (22:57)
[2024-03-28] MEDS ORDERED: NA CHLORIDE 0.9% 100 ML ONE (22:58)
[2024-03-28] MEDS ORDERED: PANTOPRAZOLE 40 MG INJ ONE ×2 (22:58→22:59)
[2024-03-29 01:14] VITALS: TEMP 98.7
[2024-03-29 01:37] VITALS: BP 142/83; O2SAT 97
--- NOTE | 2024-03-30 14:43 | EKG ---
Test Date: 2024-03-28 Test Time: 19:29:46 [employer] System Administrator: TWIN MEASUREMENT RESULTS: Intervals: Rate: 121 WY: 136 QRSD: 84 QT: 318 QTc: 451 [place]: P: 75 WY: 136 QRS: 57 T: 70 INTERPRETIVE STATEMENTS: Sinus tachycardia Otherwise normal ECG Compared to ECG 03/19/2024 16:08:03 Sinus rhythm no longer present Electronically Signed On 03-30-24 14:38:32 CDT by Torsten Leonard
== END 2024-03-29 01:01 | disposition short-term general hospital (02) ==
LOC: ER 18:16
DX: J10.1 Influenza due to other identified influenza virus with other respiratory manifestations (principal); J98.2 Interstitial emphysema; Z11.52 Encounter for screening for COVID-19
CPT/HCPCS: 93005; 87040 ×2; 85025; 81001; 36415; 85610; 82947; 83605; 85730; 84484; 80053; 87804 ×2; 71275; 71045; 87811; Q9967; J7614 ×2; J7644; C9113 ×2; J2919; J7050 ×2; J7030 ×2; J0696